=== PATIENT | male | born 1955 | race Caucasian/White ===

== ENCOUNTER → 2016-08-25 | Outpatient (CLI) | payer BC, OTHER ==
[~2016-08-25] VITALS: Ht 177.8 cm; Wt 103.2 kg
[~2016-08-25] MED LIST: ADVIL COLD & S1 EAC1 PO; ADVIL100 M2 PO; ALLEGRA-D 12 H1 EAC1 PO; ASPIRIN81 M2 PO; BACLOFEN 10MG T10 MG PO; CARAFATE 1 GM TA1 G1 PO; CELEBREX 200 M200 MG PO; FISHOIL PO; HYDROCODON-ACE1 EAC7 PO; IBUPROFEN 200200 M1 PO; IBUPROFEN200 M2 PO; MOBIC15 MG PO; MOBIC7.5 MG PO; MULTIVITAMINS PO; NORCO 5-325 TA1 EACH PO; OMEPRAZOLE20 M2 PO; RELAFEN750 MG PO; UNICOMPLEX M TA1 TA1 PO; VITCB500GO PO; ZETIA10 MG PO; ZOFRAN ODT4 MG PO; ZYRTEC10 M2 PO
--- NOTE | ~2016-08-25 | HPC ---
[facility] [address] [place] [address] PAIN MANAGEMENT CONSULTATION Name: RADHACELINESHAHNAZ Farideh Room #: REG MIGUEL Monge#: [id number] Admission: 08/25/16 Attend Phys: Jacek Ireland DO Discharge: Date of : 55 Report #: [id number] THIS REPORT FOR: //name// CC: Emigdio Ireland The patient is a very pleasant 61-year-old gentleman, well known to pain clinic, typically treated for symptomatic lumbar radiculopathy, secondary to spinal stenosis. He was, however, at last time treated for a component of cervical spondylitic pain had left C3-C4, C4-C5, C5-C6 facet joint injections with significant improvement of neck pain. He returns to pain clinic today with his classic back pain. He has pain in the low back, posterior legs with some subjective weakness. He has done well with occasional epidural injections. In 2015, he had a lumbar epidural injection in August, and again in January and May, each time with 70-80% relief for several months. I did reimage his back in November of 2015 (this was compared to a prior MRI from 04/28/2014). Findings noted no dramatic change from the 2013 study, it did show ongoing bilateral neural foraminal stenosis at L3-L4, with moderate central stenosis, moderate bilateral neural foraminal stenosis at L4-L5 and moderate left neural foraminal stenosis L5-S1. The patient returns to pain clinic today noting pain has recurred, low back, bilateral posterior thighs. Right seems to be little worse than left. Notes his pain is 7 on a 0-10 visual analog scale, worse in the a.m. PHYSICAL EXAMINATION: Shows a 61-year-old gentleman, BMI is 32.7 kilograms per meter squared. Vital signs are stable as noted in the EMR. Rises from the chair using armrests. Lumbar flexion is actually fairly good. Lower extremity strength is symmetric, though he does have a positive straight leg raise on the right with slight diminished plantarflexion, and a little bit of hip extension strength on the right side. ASSESSMENT: Symptomatic lumbar radiculopathy secondary to spinal stenosis. The patient has done well with occasional epidural injections. RECOMMENDATION: Repeat lumbar epidural injection under fluoroscopy today. Follow up simply as needed. Continue jecf-usa-[id number] ibuprofen. He really takes no other significant medications other than this. ASSESSMENT: Symptomatic lumbar radiculopathy secondary to spinal stenosis. PROCEDURE: Lumbar epidural injection under fluoroscopy. DESCRIPTION OF PROCEDURE: After both written and informed consent to include risk of spinal cord damage, increased pain, weakness and dural puncture, the patient was taken to the fluoroscopy suite, placed in the prone position. After [facility] [address] [place] [address] PAIN MANAGEMENT CONSULTATION Name: SHAHNAZ CHIANG Room #: REG MIGUEL Monge#: [id number] Admission: 08/25/16 Attend Phys: Jacek Ireland DO Discharge: Date of : 55 Report #: [id number] sterile prep and drape, a skin wheal with lidocaine was raised. A 22-gauge epidural Tuohy needle was inserted in the midline at L4-L5 with good loss to resistance. Negative aspiration for cerebrospinal fluid or blood was noted. Then 1 mL of Omnipaque under biplanar fluoroscopy showed good spread within the epidural space. This was followed with 80 mg of triamcinolone plus 1 mL of 1.5% preservative-free Xylocaine, 0.5 mL Xylocaine was then injected to flush the needle; it was removed. The patient was monitored for an appropriate period of time and discharged in good and stable condition. <ELECTRONICALLY SIGNED> By: Jacek Ireland DO 08/26/16 0904 1149 1406 Jacek Ireland DO /nt
[2016-08-25 09:25] VITALS: BP 137/80
== END | disposition home or self-care (01) ==
LOC: PAIN 07:06
DX: M48.06 Spinal stenosis, lumbar region (principal); G89.29 Other chronic pain

== ENCOUNTER → 2016-11-17 | Outpatient (CLI) | payer BC ==
[~2016-11-17] VITALS: Ht 177.8 cm; Wt 101.9 kg
--- NOTE | ~2016-11-17 | HPC ---
[facility] [address] [place] [address] PAIN MANAGEMENT CONSULTATION Name: MARIIASHAHNAZ Farideh Room #: REG [facility] Yoana.#: [id number] Admission: 11/17/16 Attend Phys: Jacek Ireland DO Discharge: Date of : 55 Report #: [id number] THIS REPORT FOR: //name// CC: Emigdio Ireland The patient is a very pleasant 61-year-old gentleman, typically treated for lumbar radiculopathy, component of cervical spondylosis, he was given left C3-C4, C4-C5 and C5-C6 facet joint injections at last visit with good improvement of baseline pain. Typically, he was treated for lumbar radicular symptoms and had lumbar epidural injection back in May and prior had epidural injections in January and August 2015. He returns to pain clinic today noting that while the neck symptoms are dramatically improved, his chronic lumbar radicular symptoms have recurred, right greater than left leg, posterior aspect of both legs; however, standing causes pain, rates up to a 4-5 on a 0-10 visual analog scale, electric shooting intermittent pain. PHYSICAL EXAMINATION: Shows pleasant 61-year-old gentleman, BMI & VS on EMR. Lumbar flexion is limited. Gait is modestly antalgic. Blood pressure slightly elevated 140/93, pulse 61, and respirations are 18. Straight leg raise is positive bilaterally. We reviewed diagnostic studies including MRI from last year (November 2015) noting bilateral neural foraminal stenosis at L3-L4 with moderate central stenosis, moderate bilateral neural foraminal stenosis at L4-L5 and moderate left neural foraminal stenosis at L5-S1. ASSESSMENT: Symptomatic lumbar radiculopathy. RECOMMENDATION: Lumbar epidural injection under fluoroscopy today at L4-L5, follow up simply as needed. PROCEDURE: Lumbar epidural injection under fluoroscopy. PROCEDURE NOTE: After both written and informed consent to include risk of spinal cord damage, increased pain, weakness and dural puncture, the patient was taken to the fluoroscopy suite, placed in the prone position. After sterile prep and drape, a skin wheal with lidocaine was raised. A 22-gauge epidural Tuohy needle was inserted in the midline at L4-L5 with good loss to resistance. Negative aspiration for cerebrospinal fluid or blood was noted. Then 1 mL of Omnipaque under biplanar fluoroscopy showed good spread within the epidural space. This was followed with 80 mg of triamcinolone plus 1 mL of 1.5% preservative-free Xylocaine, 0.5 mL Xylocaine was then injected to flush the [facility] [address] [place] [address] PAIN MANAGEMENT CONSULTATION Name: SHAHNAZ CHIANG Room #: REG [facility]#: [id number] Admission: 11/17/16 Attend Phys: Jacek Ireland DO Discharge: Date of : 55 Report #: [id number] needle; it was removed. The patient was monitored for an appropriate period of time and discharged in good and stable condition. <ELECTRONICALLY SIGNED> By: Jacek Ireland DO 11/18/16 0736 1157 1526 Jacek Ireland DO /nt
[2016-11-17 09:17] VITALS: BP 140/93
== END | disposition home or self-care (01) ==
LOC: PAIN 07:01
DX: M54.16 Radiculopathy, lumbar region (principal); I10 Essential (primary) hypertension; M19.90 Unspecified osteoarthritis, unspecified site

== ENCOUNTER → 2017-03-13 | Outpatient (CLI) | payer BC ==
[~2017-03-13] VITALS: Ht 180.3 cm; Wt 101.6 kg
[~2017-03-13] MED LIST changes: +CIALIS5 MG PO
--- NOTE | ~2017-03-13 | HPC ---
[facility] [address] [place] [address] PAIN MANAGEMENT CONSULTATION Name: MARIIASHAHNAZ Gong Room #: REG Sarah Lees.#: [id number] Admission: 03/13/17 Attend Phys: Jacek Ireland DO Discharge: Date of : 55 Report #: [id number] THIS REPORT FOR: //name// CC: Emigdio Ireland DATE OF SERVICE: 03/13/2017 The patient is a 62-year-old gentleman long known to this pain clinic for symptomatic lumbar radiculopathy. He has had some component of cervical spondylosis, did well with cervical facet joint injections in the distant past, typically has had epidural injections for ongoing lumbar radicular pain in the right L4 pattern. Last injection was 11/17/2013, prior epidural injection was back in August. He returns to pain clinic today noting injections usually afford some 60% to 80% relief for many months. Pain gradually has begun to recur without antecedent trauma and overuse. Tragically he had put his dog down this morning. He has elected not to have children. 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 He has had a little bit of spasm in the back. He takes a rare baclofen and jrte-hnu-ncpsiyk Aleve for this. PHYSICAL EXAMINATION: Shows 62-year-old gentleman, vital signs are stable. Some diffuse tenderness in the mid back area. No discrete trigger points are noted. Flexion is good to about 80 degrees. Modestly antalgic gait, positive straight leg raise on the right. Slight decreased right hip flexion strength. Reviewed diagnostic findings noting lumbar spondylosis and actually component of cervical spondylosis as well. ASSESSMENT: Symptomatic lumbar radiculopathy, component of lumbar spondylosis and cervical spondylosis, doing well with conservative therapies. Given greater than 60% relief for greater than 6 weeks with last injection, we would like to repeat epidural injection under fluoroscopy today. Follow up as needed. ASSESSMENT: Symptomatic lumbar radiculopathy. PROCEDURE: Lumbar epidural injection under fluoroscopy. PROCEDURE NOTE: After both written and informed consent to include risk of [address] [address] PAIN MANAGEMENT CONSULTATION Name: SHAHNAZ CHIANG Farideh Room #: REG [facility] [place]#: [id number] Admission: 03/13/17 Attend Phys: Jacek Ireland DO Discharge: Date of : 55 Report #: [id number] spinal cord damage, increased pain, weakness and dural puncture, the patient was taken to the fluoroscopy suite, placed in the prone position. After sterile prep and drape, a skin wheal with lidocaine was raised. A 22-gauge epidural Tuohy needle was inserted in the midline at L4-5 with good loss to resistance. Negative aspiration for cerebrospinal fluid or blood was noted. Then 1 mL of Omnipaque under biplanar fluoroscopy showed good spread within the epidural space. This was followed with 80 mg of triamcinolone plus 1 mL of 1.5% preservative-free Xylocaine, 0.5 mL Xylocaine was then injected to flush the needle; it was removed. The patient was monitored for an appropriate period of time and discharged in good and stable condition. <ELECTRONICALLY SIGNED> By: Jacek Ireland DO 03/15/17 0801 1321 1348 Jacek Ireland DO /nt
[2017-03-13 12:59] VITALS: BP 144/77
== END | disposition home or self-care (01) ==
LOC: PAIN 03-03 07:39
DX: M47.896 Other spondylosis, lumbar region (principal); M54.16 Radiculopathy, lumbar region; G89.29 Other chronic pain; M47.897 Other spondylosis, lumbosacral region; Z98.890 Other specified postprocedural states; Z87.891 Personal history of nicotine dependence

== ENCOUNTER → 2017-07-03 | Outpatient (CLI) | payer BC ==
[~2017-07-03] VITALS: Ht 177.8 cm; Wt 106.6 kg
--- NOTE | ~2017-07-03 | HPC ---
[address] [address] PAIN MANAGEMENT CONSULTATION Name: RADHACELINESHAHNAZ W Room #: REG MIGUEL Monge#: [id number] Admission: 07/03/17 Attend Phys: Jacek Ireland DO Discharge: Date of : 55 Report #: [id number] THIS REPORT FOR: //name// CC: Emigdio Ireland DATE OF SERVICE: 07/03/2017 HISTORY OF PRESENT ILLNESS: The patient is a 62-year-old gentleman long known to the pain clinic, being treated for symptomatic lumbar radiculopathy and history of cervical spondylosis. He has done well with occasional epidural injections and the last injection was back in November. The patient returns to the pain clinic today with ongoing axial back and lumbar radicular pain. He ultimately was seen by Dr. Vinny Rodriguez at [facility] for consideration for lumbar radicular pain. MRI was compared to a prior study from 11/26/2015 noting L5-S1 to have stable severe left neural foraminal stenosis, L4-L5 to have severe right and moderate left neural foraminal stenosis and L3-L4 to have moderate to severe central stenosis with bilateral stenosis, right greater than left. The patient's classic symptoms are primarily right lumbar radicular pain in a L4 pattern. Today, we did discuss at length therapeutic options. Ultimately, given the fact that he has had ongoing radicular symptoms with good yet transient relief with epidural injections, I think it would be reasonable to move forward with a decompressive laminectomy. PHYSICAL EXAMINATION: Today shows 62-year-old gentleman, BMI is 31.3 kilograms per meter squared. Vital signs are stable as noted in the EMR. Rises from chair using armrest. Diffuse axial back pain. Positive straight leg raise on the right with slight decreased right hip flexion strength. DIAGNOSTIC STUDIES: Alluded to above. ASSESSMENT: Symptomatic lumbar radiculopathy by clinical exam with acute right L4 radicular pain, history of cervical radiculopathy and cervical spondylosis. RECOMMENDATIONS: 1. Epidural injection under fluoroscopy today, midline L4-L5. 2. Recommend the patient to follow up with Surgery for possible more definitive intervention. PROCEDURE: Lumbar epidural injection under fluoroscopy. [address] [address] PAIN MANAGEMENT CONSULTATION Name: RADHACELINESHAHNAZ W Room #: REG [facility].#: [id number] Admission: 07/03/17 Attend Phys: Jacek Ireland DO Discharge: Date of : 55 Report #: [id number] PROCEDURE NOTE: After both written and informed consent to include risk of spinal cord damage, increased pain, weakness and dural puncture, the patient was taken to the fluoroscopy suite, placed in the prone position. After sterile prep and drape, a skin wheal with lidocaine was raised. A 22-gauge epidural Tuohy needle was inserted in the midline at L4-L5 with good loss to resistance. Negative aspiration for cerebrospinal fluid or blood was noted. Then 1 mL of Omnipaque under biplanar fluoroscopy showed good spread within the epidural space. This was followed with 80 mg of triamcinolone plus 1 mL of 1.5% preservative-free Xylocaine, 0.5 mL Xylocaine was then injected to flush the needle; it was removed. The patient was monitored for an appropriate period of time and discharged in good and stable condition. <ELECTRONICALLY SIGNED> By: Jacek Ireland DO 07/10/17 0759 1610 0457 Jacek Ireland DO /nt
[2017-07-03 13:27] VITALS: BP 163/89
== END | disposition home or self-care (01) ==
LOC: PAIN 06:58
DX: M54.16 Radiculopathy, lumbar region (principal); G89.29 Other chronic pain; Z87.891 Personal history of nicotine dependence

== ENCOUNTER → 2017-10-13 | Outpatient (CLI) | payer BC ==
[~2017-10-13] VITALS: Ht 177.8 cm; Wt 107.4 kg
[~2017-10-13] MED LIST changes: +LISINOPRIL20 MG PO; +[UNRECOGNIZED DRUG - OTHER] PO
--- NOTE | ~2017-10-13 | HPC ---
[facility] [place] [address] PAIN MANAGEMENT CONSULTATION Name: RADHACELINESHAHNAZ W Room #: REG Sarah Lees.#: [id number] Admission: 10/13/17 Attend Phys: Jacek Ireland DO Discharge: Date of : 55 Report #: [id number] THIS REPORT FOR: //name// CC: Emigdio Ireland The patient is a very pleasant 62-year-old gentleman being treated for symptomatic lumbar radiculopathy secondary to spinal stenosis. He has done very well with occasional epidural injections, but we have been doing epidural injections off and on since 2014. In 2017, he had four injections, the last injection was 07/03/2017. He returns to the pain clinic today. I had encouraged him to follow through with a back surgery for stenosis. Most recent MRI of the lumbar spine on 06/14/2017 notes a stable left L5-S1, severe left and mild right neural foraminal stenosis, stable L4-L5 severe right and moderate left neural foraminal stenosis, stable moderate to severe central stenosis at L3-L4 with moderate bilateral neural foraminal stenosis. The back surgeon at [facility] had suggested a three level what sounds like a laminectomy. The patient was planning to have surgery within the month, but he has elected to postpone surgery at this time. He is a very active gentleman who was concerned that with multilevel "whittling on his back," his back would become unstable. Given the fact that he has no "red flags" including bowel or bladder continence changes, saddle anesthesia or lower extremity weakness, I suggested it is prudent to wait a little if surgery certainly is not urgent; however, he absolutely does need to follow up with surgery at some point given that he is in generally good health. Otherwise, I do not think it is prudent to simply continue epidural injections to help mitigate symptoms when there is likely a surgical correction. Given the fact that he was a little concerned about the surgical plan, I suggested that he get a second opinion and gave him contact information for [facility]. If he gets the same recommendation, he can move forward with more confidence with the prior proposed multilevel decompression. He incidentally is noting increasing pain in his left knee. He does have osteoarthritis here with ballottable edema and significant decreased range of motion. He follows at [facility]. They have done multiple steroid injections. He had no relief with Synvisc. I suggested he talk to them about PRP as a possible next step. ASSESSMENT: Symptomatic lumbar radiculopathy by clinical exam and history, lumbar spondylosis and left knee degenerative joint disease. PROCEDURE: Lumbar epidural injection under fluoroscopy. PROCEDURE NOTE: After both written and informed consent to include risk of [facility] [address] [place] [address] PAIN MANAGEMENT CONSULTATION Name: MARIIASHAHNAZ W Room #: REG CLSarah Monge#: [id number] Admission: 10/13/17 Attend Phys: Jacek Ireland DO Discharge: Date of : 55 Report #: [id number] spinal cord damage, increased pain, weakness and dural puncture, the patient was taken to the fluoroscopy suite, placed in the prone position. After sterile prep and drape, a skin wheal with lidocaine was raised. A 22-gauge epidural Tuohy needle was inserted in the midline at L4-L5 with good loss to resistance. Negative aspiration for cerebrospinal fluid or blood was noted. Then 1 mL of Omnipaque under biplanar fluoroscopy showed good spread within the epidural space. This was followed with 80 mg of triamcinolone plus 1 mL of 1.5% preservative-free Xylocaine, 0.5 mL Xylocaine was then injected to flush the needle; it was removed. The patient was monitored for an appropriate period of time and discharged in good and stable condition. <ELECTRONICALLY SIGNED> By: Jacek Ireland DO 10/19/17 0938 1539 2214 Jacek Ireland DO /nt
[2017-10-13 14:10] VITALS: BP 151/87
== END | disposition home or self-care (01) ==
LOC: PAIN 07:15
DX: M54.16 Radiculopathy, lumbar region (principal); M47.896 Other spondylosis, lumbar region; M17.11 Unilateral primary osteoarthritis, right knee; Z87.891 Personal history of nicotine dependence

== ENCOUNTER → 2018-01-12 | Outpatient (CLI) | payer BC ==
[~2018-01-12] VITALS: Ht 180.3 cm; Wt 105.2 kg
[~2018-01-12] MED LIST changes: -[UNRECOGNIZED DRUG - OTHER] PO
--- NOTE | ~2018-01-12 | HPC ---
[facility] [address] [place] [address] PAIN MANAGEMENT CONSULTATION Name: RADHACELINESHAHNAZ Farideh Room #: REG [facility] Yoana.#: [id number] Admission: 01/12/18 Attend Phys: Jacek Ireland DO Discharge: Date of : 55 Report #: [id number] THIS REPORT FOR: //name// CC: Emigdio Ireland DATE OF SERVICE: 01/12/2018 HISTORY OF PRESENT ILLNESS: The patient is a very pleasant 62-year-old gentleman, long known to the pain clinic, being treated for symptomatic lumbar radiculopathy secondary to spinal stenosis. He has done well with occasional epidural injections, last injection, 10/13/2017. Given fairly significant spinal stenosis throughout the lumbar spine as noted on MRI, 06/14/2017, L3-L4 showing stable moderate to severe central stenosis, L4-L5 noting left paracentral disk protrusion, stable moderate bilateral facet arthrosis, severe right neural foraminal and moderate left neural foraminal stenosis, L5-S1 noting asymmetric left mild bilateral facet arthropathy, stable severe left and mild right neural foraminal stenosis. I did refer the patient to Neurosurgery for consideration. They suggested a back surgery if the patient develops any myelopathic symptoms (bowel or bladder continence changes or lower extremity weakness). The patient notes, however, he simply has pain in low back and right leg. Again, has done well with occasional epidural injections and would like to continue on this course with 2 or 3 injections a year as needed. He does use ibuprofen and occasional baclofen. PHYSICAL EXAMINATION: GENERAL: Relatively unchanged, pleasant 62-year-old gentleman, BMI 32.4 kilograms per meter squared. VITAL SIGNS: Show modest hypertension, 141/86; pulse is 59; respiration 16. MUSCULOSKELETAL: Rises from chair using armrest. Gait is tandem. Diffuse tenderness across the low back with an L4 radicular pain noted bilaterally. Modestly positive straight leg raising bilaterally. ASSESSMENT: Symptomatic lumbar radiculopathy by clinical exam and history. RECOMMENDATION: Repeat epidural injection under fluoroscopy today. Follow up simply as needed. PROCEDURE: Lumbar epidural injection under fluoroscopy with an epidural. PROCEDURE NOTE: After both written and informed consent to include risk of spinal cord damage, increased pain, weakness and dural puncture, the patient was taken to the fluoroscopy suite, placed in the prone position. After sterile [address] [address] PAIN MANAGEMENT CONSULTATION Name: SHAHNAZ CHIANG Room #: REG [facility].#: [id number] Admission: 01/12/18 Attend Phys: Jacek Ireland DO Discharge: Date of : 55 Report #: [id number] prep and drape, a skin wheal with lidocaine was raised. A 22-gauge epidural Tuohy needle was inserted in the midline at L4-L5 with good loss to resistance. Negative aspiration for cerebrospinal fluid or blood was noted. Then 1 mL of Omnipaque under biplanar fluoroscopy showed good spread within the epidural space. This was followed with 80 mg of triamcinolone plus 1 mL of 1.5% preservative-free Xylocaine, 0.5 mL Xylocaine was then injected to flush the needle; it was removed. The patient was monitored for an appropriate period of time and discharged in good and stable condition. <ELECTRONICALLY SIGNED> By: Jacek Ireland DO 01/15/18 0709 1221 0217 Jacek Ireland DO /nt
[2018-01-12 09:04] VITALS: BP 141/86
== END | disposition home or self-care (01) ==
LOC: PAIN 06:56
DX: M54.16 Radiculopathy, lumbar region (principal); M48.061 Spinal stenosis, lumbar region without neurogenic claudication; G89.29 Other chronic pain; Z87.891 Personal history of nicotine dependence; Z79.899 Other long term (current) drug therapy

== ENCOUNTER → 2018-05-22 | Outpatient (CLI) | payer BC ==
[~2018-05-22] VITALS: Ht 180.3 cm; Wt 104.6 kg
[~2018-05-22] MED LIST changes: +[UNRECOGNIZED DRUG - OTHER] PO
--- NOTE | ~2018-05-22 | HPC ---
[facility] [address] [place] [address] PAIN MANAGEMENT CONSULTATION Name: RADHACELINESHAHNAZ CHATTERJEE Room #: REG [facility] MFransico.#: [id number] Admission: 05/22/18 Attend Phys: Kaleb Ireland DO Discharge: Date of : 55 Report #: [id number] THIS REPORT FOR: //name// CC: Kaleb Downs DATE OF SERVICE: 05/22/2018 CHIEF COMPLAINT: Low back pain and lower extremity pain with paresthesias. HISTORY OF PRESENT ILLNESS: As you know, the patient is a very pleasant 63-year-old male returning in followup visit indicating improvement with previous epidural injection but only lasted for approximately 1 week. He reports greater than 50% improvement in overall pain. The patient states no new injury, no new trauma or any changes in medical history since our last visit. He returns today in followup visit requesting to undergo next in the series of epidural injections to address residual and ongoing pain. He states the pain begins in low back, radiates down both legs bilaterally, left greater than right. Indicates pain is chronic in sensation and describes pain as sharp, aching, dull, stabbing, numbness, tingling, places current pain score 9/10; states standing, walking and bending at any direction causes intensification of pain and medications, seated position, lying down and epidural injections tend to improve pain. He returns today in followup visit requesting next in the series of epidural injections. ALLERGIES: No known drug allergies. CURRENT MEDICATIONS: Multivitamin 1 tab per day, baclofen 10 mg 3 times a day, lisinopril 20 mg once a day, Cialis 5 mg p.r.n., ibuprofen 200 mg up to 3 times a day and omega-3 fish oil 1 tab per day. SOCIAL HISTORY: The patient denies tobacco, alcohol or IV or illicit drug use. He is unaccompanied today. IMAGING DATA: No new imaging available. PHYSICAL EXAMINATION: VITAL SIGNS: Blood pressure 143/88, pulse is 57 and respiratory rate 16 and unlabored. The patient is 97% on room air. Height 5 feet 11 inches tall, weight 230.6 pounds and BMI calculated 32.2. GENERAL: Well-developed, well-nourished, well-hydrated 63-year-old male appearing his stated age, placing current pain score at approximately 9/10. HEENT: Normocephalic and atraumatic. Pupils equal, round and reactive to light. Extraocular muscles are intact. EXTREMITIES: Show no clubbing, no cyanosis and no edema. MUSCULOSKELETAL: Seated straight leg raising remains negative. Supine straight [address] [address] PAIN MANAGEMENT CONSULTATION Name: SHAHNAZ CHIANG Room #: REG [facility].#: [id number] Admission: 05/22/18 Attend Phys: Kaleb Ireland DO Discharge: Date of : 55 Report #: [id number] leg raising is positive, left side. Sonia's test negative. Modified Gaenslen's positive for axial low back pain. Gait is antalgic. ASSESSMENT: 1. Symptomatic lumbar radiculopathy. 2. Progressively worsening spinal stenosis of the lumbar spine. 3. 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 4. Displacement of the lumbar intervertebral disk with radiculopathy. 5. Lumbosacral spondylosis with radiculopathy. 6. Degeneration of the lumbar spine. 7. Chronic intractable pain. PLAN: 1. The patient returns today in followup visit having noted approximately 50%-55% improvement in overall pain with previous epidural injection. Unfortunately, his symptoms did return quite quickly. He wishes to undergo next in the series of epidural injections in hopes of gaining improvement for a longer period of time. The patient and I discussed at length today that lack of improvement with epidural injections can be due to multiple causes, the most concerning is that his spinal stenosis has progressed and he is no longer experiencing an inflammatory process as much as he is experiencing a mechanical process, which cannot be alleviated with epidural injections. The patient wishes to trial next in the series of epidural injections, but does understand our concern about a lack of efficacy with previous injection. The patient has been advised risks and benefits of this procedure and states understood and wished to proceed. 2. No new imaging has been obtained though if the patient does not note good improvement with today's procedure, I would recommend further imaging to evaluate and determine if surgical options are necessary. The patient will consider this option based on efficacy of today's injection. 3. No medication changes made at today's visit. The patient to continue current medical therapy. 4. We will see the patient back in followup visit on an as needed basis. PROCEDURE NOTE DESCRIPTION OF PROCEDURE: L4-L5 paramedian epidural steroid injection under fluoroscopic guidance. After obtaining written consent, the patient was taken back to fluoroscopy suite, placed in prone position with pillow under abdomen to decrease lumbar lordosis. Skin overlying lumbosacral area prepped and draped in aseptic fashion using chlorhexidine. The skin and subcutaneous tissue overlying target site of injection was then anesthetized with 3 mL of 1% lidocaine using a 27-gauge 1-1/4 inch needle[address] [address] PAIN MANAGEMENT CONSULTATION Name: SHAHNAZ CHIANG Room #: REG [facility] [place]#: [id number] Admission: 05/22/18 Attend Phys: Kaleb Ireland DO Discharge: Date of : 55 Report #: [id number] A 20-gauge 3-1/2 inch Tuohy needle was advanced under fluoroscopic guidance towards the epidural space using a paramedian approach. Epidural space identified using loss of resistance to air technique. After negative aspiration for heme or cerebrospinal fluid, 1 mL of Omnipaque injected. A lumbar epidurogram was confirmed using both AP and lateral fluoroscopy. After negative aspiration for heme or cerebrospinal fluid, 5 mL of a solution containing 2 mL 40 mg per mL, 80 mg total triamcinolone, 3 mL lidocaine 1% injected slowly. Needle retracted custodial, flushed with 1 mL of 1% lidocaine and removed. A sterile bandage was placed over injection site. No new motor deficits present in the lower extremity following procedure. The patient tolerated procedure well, carefully escorted to Recovery Room in stable condition. No apparent complication. After meeting discharge criteria, the patient discharged home. <ELECTRONICALLY SIGNED> By: Kaleb Ireland DO 05/23/18 [id number] Kaleb Ireland DO /nt
[2018-05-22 09:35] VITALS: BP 143/88
== END | disposition home or self-care (01) ==
LOC: PAIN 06:53
DX: M51.16 Intervertebral disc disorders with radiculopathy, lumbar region (principal); M48.061 Spinal stenosis, lumbar region without neurogenic claudication; M47.27 Other spondylosis with radiculopathy, lumbosacral region; G89.29 Other chronic pain; Z79.899 Other long term (current) drug therapy; Z87.891 Personal history of nicotine dependence; Z98.890 Other specified postprocedural states